=== PATIENT | male | born 1970 | race African-American/Black ===

== ENCOUNTER 2017-09-03 08:30 | Emergency (ER) | payer BC, OTHER ==
--- NOTE | 2017-09-03 08:50 | EDM.PDOC ---
ED HPI GENERAL MEDICAL PROBLEM - General Chief Complaint: Lower Extremity Injury/Pain Stated Complaint: LT KNEE HURTS Time Seen by Provider: 09/03/17 08:48 - History of Present Illness INITIAL COMMENTS - FREE TEXT/NARRATIVE: HISTORY AND PHYSICAL: History of present illness: Patient is a 47-year-old white male presents with concern of left knee pain this is been a chronic problem for which she's had multiple clinic and doctor visits he was put on an anti-inflammatory medication had plain x-ray and routine blood work which he states there was no evidence of gout or other problems and that is in the process of securing reevaluation with his primary care doctor for either physical therapy follow-up with or without an MRI he states today he felt like his knee has been slightly more painful and swollen he states it feels like it wants to give out. Review of systems: As per history of present illness and below otherwise all systems reviewed and negative. Past medical history: As per history of present illness and as reviewed below otherwise noncontributory. Surgical history: As per history of present illness and as reviewed below otherwise noncontributory. Social history: No reported history of drug or alcohol abuse. Family history: As per history of present illness and as reviewed below otherwise noncontributory. Physical exam: HEENT: Atraumatic, normocephalic, pupils reactive, negative for conjunctival pallor or scleral icterus, mucous membranes moist, throat clear, neck supple, nontender, trachea midline. Lungs: Clear to auscultation, breath sounds equal bilaterally, chest nontender. Heart: S1S2, regular, negative for clicks, rubs, or JVD. Abdomen: Soft, nondistended, nontender. Negative for masses or hepatosplenomegaly. Negative for costovertebral tenderness. Pelvis: Stable nontender. Genitourinary: Deferred. Rectal: Deferred. Extremities: Atraumatic, negative for cords or calf pain. Neurovascular unremarkable. Limited exam joint grossly stable Neuro: Awake, alert, oriented. Cranial nerves II through XII unremarkable. Cerebellum unremarkable. Motor and sensory unremarkable throughout. Exam nonfocal. Diagnostics: Deferred Therapeutics: Knee immobilizer crutches Impression: #1 chronic knee pain with acute exacerbation etiology to be determined Definitive disposition and diagnosis as appropriate pending reevaluation and review of above. - Related Data Allergies Allergy/AdvReac Type Severity Reaction Status Date / Time No Known Allergies Allergy Verified 04/24/15 16:16 Home Meds: Home Meds . [No Known Home Meds] 06/26/14 [History] Past Medical History - Past Health History Medical/Surgical History: Denies Medical/Surgical History Other Respiratory History: Tested for sleep apnea- he does not need a cpap. his test was normal Other Gastrointestinal History: family history of brother with colon polyp Other Musculoskeletal History: hx: fractured clavicle - Past Surgical History Other Musculoskeletal Surgeries/Procedures:: Surgery on a toe 15 yrs ago Social & Family History - Tobacco Use Smoking Status *Q: Former Smoker (quit greater than 10 years ago) - Alcohol Use Days Per Week of Alcohol Use: 0 - Recreational Drug Use Recreational Drug Use: No Drug Use in Last 12 Months: No Review of Systems - Review of Systems Review Of Systems: ROS reveals no pertinent complaints other than HPI. ED EXAM, GENERAL - Physical Exam Exam: See Below (See dictation) Departure - Departure Time of Disposition: 08:50 Disposition: Home, Self-Care 01 Condition: Good Clinical Impression: Knee pain - Discharge Information Referrals: PCP,None [Primary Care Provider] - Additional Instructions: The following information is given to patients seen in the emergency department who are being discharged to home. This information is to outline your options for follow-up care. We provide all patients seen in our emergency department with a follow-up referral. The need for follow-up, as well as the timing and circumstances, are variable depending upon the specifics of your emergency department visit. If you don't have a primary care physician on staff, we will provide you with a referral. We always advise you to contact your personal physician following an emergency department visit to inform them of the circumstance of the visit and for follow-up with them and/or the need for any referrals to a consulting specialist. The emergency department will also refer you to a specialist when appropriate. This referral assures that you have the opportunity for followup care with a specialist. All of these measure are taken in an effort to provide you with optimal care, which includes your followup. Under all circumstances we always encourage you to contact your private physician who remains a resource for coordinating your care. When calling for followup care, please make the office aware that this follow-up is from your recent emergency room visit. If for any reason you are refused follow-up, please contact the [facility] emergency department at and asked to speak to the emergency department charge nurse. AGUILAR [facility] [address], [address] [place] [address] Knee immobilizer crutches as directed continue current medications as prescribed follow-up orthopedic surgery and private medical doctor as discussed
[2017-09-03 09:23] VITALS: BP 149/93
== END 2017-09-03 09:18 | disposition home or self-care (01) ==
LOC: MW.ED 08:30
DX: M25.562 Pain in left knee (principal); G89.29 Other chronic pain; Z87.891 Personal history of nicotine dependence
CPT/HCPCS: 99282; 99283

== ENCOUNTER 2017-10-22 22:44 | Emergency (ER) | payer BC ==
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
[2017-10-23 01:43] VITALS: BP 138/81
== END 2017-10-22 23:52 | disposition home or self-care (01) ==
LOC: MW.ED 22:44
DX: Z02.83 Encounter for blood-alcohol and blood-drug test (principal); Z79.899 Other long term (current) drug therapy; Z87.891 Personal history of nicotine dependence; V47.5XXA Car driver injured in collision with fixed or stationary object in traffic accident, initial encounter
CPT/HCPCS: 99282

== ENCOUNTER 2017-11-01 07:43 | Emergency (ER) | payer BC ==
[2017-11-01] MEDS ORDERED: Sodium Chloride 0.9% 10 ML Syringe FLUSH PRN (08:15)
[2017-11-01] MEDS ORDERED: Sodium Chloride 0.9% 2.5 ML Syringe FLUSH PRN (08:15)
[2017-11-01] MEDS ORDERED: Bupivacaine 0.5% 10 ML SDV INJECT ONE (08:32)
[2017-11-01] MEDS ORDERED: Lidocaine 1% 20 ML MDV INJECT ONE (08:32)
[2017-11-01 09:07] LABS: CHLORIDE,CL 103 mmol/L (98-107); SODIUM,NA 139 mmol/L (136-148)
--- NOTE | 2017-11-01 09:55 | CR ---
EXAMINATION: Right great toe HISTORY: Trauma COMPARISON: None TECHNIQUE: 3 views FINDINGS/IMPRESSION: There is an oblique fracture through the distal first phalanx, minimally displac ed with mild overlying soft tissue swelling. Remaining osseous structures and joint spaces appear int act. Mild degenerative changes within the first interphalangeal and first MTP joints.
[2017-11-01] MEDS ORDERED: ceFAZolin 1 GM in Premix Bag 1 BAG IV ONE (10:15)
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
--- NOTE | 2017-11-01 11:33 | CT ---
EXAMINATION: CT chest with contrast HISTORY: Pain COMPARISON: None TECHNIQUE: Axial CT images obtained through the chest following the administration of 75 mL of Isovue -370 the left antecubital fossa. Coronal and sagittal reconstructions obtained. FINDINGS: The lungs are clear without focal consolidation. No pneumothorax. Trace left pleural fluid is noted. Heart is normal in size without a pericardial effusion. No mediastinal, hilar, or axillary lymphadenopathy. The central airways are clear. The thoracic aorta is normal in caliber. The visualized images of the upper abdomen appear normal. Mild soft tissue edema within the left ante rior chest. There is a minimally displaced second anterior rib fracture noted. The visualized scapula appears int act. IMPRESSION: 1. Minimally displaced left second anterior rib fracture. Trace left pleural fluid without a pneumoth orax.
[2017-11-01 11:53] VITALS: BP 164/95
[2017-11-01] MEDS ORDERED: Bacitracin Oint 1 GM U/D Packet TOP ONE (12:04)
[2017-11-01] MEDS ORDERED: Iopamidol 755 MG/ML 500 ML Multipack Bottle IVPUSH ONE (14:09)
== END 2017-11-01 12:18 | disposition home or self-care (01) ==
LOC: MW.ED 07:43
DX: S92.421B Displaced fracture of distal phalanx of right great toe, initial encounter for open fracture (principal); S22.32XD Fracture of one rib, left side, subsequent encounter for fracture with routine healing; Z79.899 Other long term (current) drug therapy; W06.XXXA Fall from bed, initial encounter; W22.8XXA Striking against or struck by other objects, initial encounter
CPT/HCPCS: 36415; 71260; 73660; 80048; 85025; 96365; 99284; J0690; Q9967

== ENCOUNTER 2019-06-17 05:10 | Emergency (ER) | payer BC ==
--- NOTE | 2019-06-17 06:10 | EDM.PDOC ---
ED HPI GENERAL MEDICAL PROBLEM - General Chief Complaint: Headache Stated Complaint: HEAD HURTS Time Seen by Provider: 06/17/19 06:00 Source of Information: Reports: Patient History Limitations: Reports: No Limitations - History of Present Illness INITIAL COMMENTS - FREE TEXT/NARRATIVE: 49-year-old gentleman presents to the emergency room with a chief complaint of falling out and striking his head on the floor about a month ago. At the time refused ambulance traffic and since that time has been having headaches and change in his sleeping pattern. States he fell out after drinking 3 beers and 2 shots of alcohol Duration: Waxing/Waning Location: Reports: Head Severity: Mild Worsens with: Reports: None Associated Symptoms: Reports: No Other Symptoms headache Pain Score (Numeric/FACES): 8 - Related Data Allergies Allergy/AdvReac Type Severity Reaction Status Date / Time No Known Allergies Allergy Verified 06/17/19 05:35 Home Meds: Home Meds Omeprazole Magnesium [Prilosec Otc] 20 mg PO DAILY 05/25/18 [History] Cyclobenzaprine [Flexeril] 10 mg PO BID PRN #12 tab 05/26/18 [Rx] Past Medical History - Past Health History Medical/Surgical History: Denies Medical/Surgical History HEENT History: Reports: Impaired Vision Other HEENT History: wears glasses Cardiovascular History: Reports: None Respiratory History: Reports: None Other Respiratory History: Tested for sleep apnea- he does not need a cpap. his test was normal Gastrointestinal History: Reports: GERD Other Gastrointestinal History: family history of brother with colon polyp Genitourinary History: Reports: None Other Musculoskeletal History: hx: fractured clavicle Neurological History: Reports: None Psychiatric History: Reports: None Endocrine/Metabolic History: Reports: Other (See Below) Other Endocrine/Metabolic History: pre diabetic Insulin Pump Model and Card Player: None Hematologic History: Reports: None Immunologic History: Reports: None Oncologic (Cancer) History: Reports: None Dermatologic History: Reports: None - Infectious Disease History Infectious Disease History: Reports: None - Past Surgical History Head Surgeries/Procedures: Reports: None Other Musculoskeletal Surgeries/Procedures:: Surgery on a toe 15 yrs ago Social & Family History - Family History Family Medical History: Noncontributory - Tobacco Use Smoking Status *Q: Never Smoker - Caffeine Use Caffeine Use: Reports: Coffee - Recreational Drug Use Recreational Drug Use: No ED ROS GENERAL - Review of Systems Review Of Systems: See Below Constitutional: Reports: No Symptoms HEENT: Reports: No Symptoms Respiratory: Reports: No Symptoms Cardiovascular: Reports: No Symptoms Endocrine: Reports: No Symptoms GI/Abdominal: Reports: No Symptoms : Reports: No Symptoms Musculoskeletal: Reports: No Symptoms Skin: Reports: No Symptoms Neurological: Reports: Headache Psychiatric: Reports: No Symptoms Hematologic/Lymphatic: Reports: No Symptoms Immunologic: Reports: No Symptoms ED EXAM, HEAD INJURY - Physical Exam Exam: See Below Exam Limited By: No Limitations General Appearance: Alert, WD/WN, No Apparent Distress Head: Atraumatic, Normocephalic Eyes: Bilateral Eye: PERRL Ears: Normal External Exam, Normal Canal, Hearing Grossly Normal, Normal TMs Nose: Normal Inspection, Normal Mucousa, No Blood Throat/Mouth: Normal Inspection, Normal Lips, Normal Teeth, Normal Gums, Normal Oropharynx, Normal Voice, No Airway Compromise Neck: Non-Tender, Full Range of Motion, Normal Alignment, Normal Inspection Respiratory: No Respiratory Distress, Lungs Clear, Normal Breath Sounds, No Accessory Muscle Use, Chest Non-Tender Cardiovascular: Normal Peripheral Pulses, Regular Rate, Rhythm, No Edema (Male) Exam: Deferred Rectal (Males) Exam: Deferred Back Exam: Normal Inspection Extremities: Normal Inspection Skin: Normal Color, Warm/Dry Course - Vital Signs Text/Narrative:: 49-year-old gentleman presents to the emergency room with a headache after a traumatic fall with loss of consciousness over a month ago. Patient states he has difficult sleep call at this time and also is having severe headaches that are increasing. Patient went to his primary care physician and a CAT scan is ordered but he cannot wait because the headaches still intensity. Patient has no neurological findings at this time. Patient was sent for CT scan of the head and was shown to have a subarachnoid and sub-dural bleed that is small. disCussed the case with Dr. Jurado at [facility] Diagnosis is arachnoid/subdural bleed Last Recorded V/S: Last Vital Signs Temp 97 F 06/17/19 05:35 Pulse 74 06/17/19 07:34 Resp 16 06/17/19 07:34 BP 143/64 H 06/17/19 07:34 Pulse Ox 96 06/17/19 07:34 - Orders/Labs/Meds Orders: Active Orders 24 hr Category Date Time Status INR,PT,PROTHROMBIN TIME [COAG] Stat Lab 06/17/19 06:13 Received Labs: Laboratory Tests 06/17/19 06/17/19 Range/Units 06:13 06:13 WBC 8.58 (4.0-11.0) K/uL RBC 4.80 (4.50-5.90) M/uL Hgb 14.0 (13.0-17.0) g/dL Hct 42.1 (38.0-50.0) % MCV 87.7 (80.0-98.0) fL MCH 29.2 (27.0-32.0) pg MCHC 33.3 (31.0-37.0) g/dL RDW Std Deviation 43.5 (28.0-62.0) fl RDW Coeff of Yovana 14 (11.0-15.0) % Plt Count 208 (150-400) K/uL MPV 10.10 (7.40-12.00) fL Neut % (Auto) 65.0 (48.0-80.0) % Lymph % (Auto) 25.4 (16.0-40.0) % [place] % (Auto) 4.8 (0.0-15.0) % Eos % (Auto) 4.5 (0.0-7.0) % Baso % (Auto) 0.3 (0.0-1.5) % Neut # (Auto) 5.6 (1.4-5.7) K/uL Lymph # (Auto) 2.2 (0.6-2.4) K/uL [place] # (Auto) 0.4 (0.0-0.8) K/uL Eos # (Auto) 0.4 (0.0-0.7) K/uL Baso # (Auto) 0.0 (0.0-0.1) K/uL Nucleated RBC % 0.0 /100WBC Nucleated RBCs # 0 K/uL Sodium 137 (136-148) mmol/L Potassium 3.8 (3.5-5.1) mmol/L Chloride 102 (98-107) mmol/L Carbon Dioxide 27.3 (21.0-32.0) mmol/L BUN 12 (7.0-18.0) mg/dL Creatinine 0.9 (0.8-1.3) mg/dL Est Cr Clr Drug Dosing 106.58 mL/min Estimated GFR (MDRD) > 60.0 ml/min Glucose 108 H (74-106) mg/dL Calcium 8.6 (8.5-10.1) mg/dL Total Bilirubin 0.3 (0.2-1.0) mg/dL AST 7 L (15-37) IU/L ALT 23 (14-63) IU/L Alkaline Phosphatase 44 L (46-116) U/L Total Protein 7.1 (6.4-8.2) g/dL Albumin 3.5 (3.4-5.0) g/dL Globulin 3.6 (2.6-4.0) g/dL Albumin/Globulin Ratio 1.0 (0.9-1.6) Departure - Departure Time of Disposition: 07:38 Disposition: DC/Tfer to Acute Hospital 02 Condition: Fair Clinical Impression: Subarachnoid hemorrhage - Discharge Information Referrals: PCP,None [Primary Care Provider] - Forms: ED Department Discharge Sepsis Event Note - Evaluation Sepsis Screening Result: No Definite Risk - Focused Exam Vital Signs: Vital Signs Temp Pulse Resp BP Pulse Ox 06/17/19 07:34 74 16 143/64 H 96 06/17/19 07:05 78 18 135/91 H 98 06/17/19 05:35 97 F 70 18 146/102 H 98 Date Exam was Performed: 06/17/19 Time Exam was Performed: 07:35 - My Orders Last 24 Hours: My Active Orders 06/17/19 06:13 INR,PT,PROTHROMBIN TIME [COAG] Stat - Assessment/Plan Last 24 Hours: My Active Orders 06/17/19 06:13 INR,PT,PROTHROMBIN TIME [COAG] Stat
[2019-06-17 06:45] LABS: BLOOD UREA NITROGEN,BUN 12 mg/dL (7.0-18.0); CARBON DIOXIDE,CO2 27.3 mmol/L (21.0-32.0); CHLORIDE,CL 102 mmol/L (98-107); GLUCOSE RANDOM 108 mg/dL (74-106); POTASSIUM,K 3.8 mmol/L (3.5-5.1); SODIUM,NA 137 mmol/L (136-148)
--- NOTE | 2019-06-17 07:15 | CT ---
INDICATION: prior sent. pain following fall with loss of consciousness 4 days prior. 270 images Indication: Pain after fall. Loss of consciousness. Technique: CT of the brain without contrast. Coronal/sagittal reconstruction images. Comparison: CT of the brain without contrast, 06/26/2014. Findings: There is suspected subarachnoid hemorrhage involving the anterior hemispheric falx, image 21, series 201, with foci of subarachnoid hemorrhage in both inferior frontal lobes. This is a new finding when compared with 06/26/2014. The interpeduncular fossa and perimesencephalic cisterns are patent. There is no ventriculomegaly. There is no shift of the septum pellucidum. There is no intraventricular hemorrhage. Pterygoid plates are intact. The skullbase and calvaria are intact. Mastoid air cells of both temporal bones are clear. Paranasal sinuses are normal where visualized. Impression: 1. Subarachnoid/subdural hemorrhage in the inferior frontal lobes/interhemispheric falx respectively. 2. Per my discussion with the ER provider, trauma was approximately 1 month ago. 3. Consider a 6 hour follow-up head CT, and neurosurgical consultation, for these findings. 4. Case reviewed with Dr. Burk of the emergency department, 06/17/2019, 0712 hours. Dictated by Gabriel Boggs MD @ 06/17/2019 7:14:29 AM Please note that all CT scans at this facility use dose modulation, iterative reconstruction, and/or weight-based dosing when appropriate to reduce radiation dose to as low as reasonably achievable. Dictated by: Gabriel Boggs MD @ 06/17/2019 07:14:50 (Electronically Signed)
[2019-06-17 09:03] VITALS: BP 159/99; PULSE 68
== END 2019-06-17 09:04 ==
LOC: MW.ED 05:10
DX: S06.6X9A Traumatic subarachnoid hemorrhage with loss of consciousness of unspecified duration, initial encounter (principal); K21.9 Gastro-esophageal reflux disease without esophagitis; Z79.899 Other long term (current) drug therapy; W19.XXXA Unspecified fall, initial encounter
CPT/HCPCS: 36415; 70450; 70450-26; 80053; 85025; 85610; 99283; 99285-25

== ENCOUNTER 2021-08-18 04:42 | Emergency (ER) | payer SELFPAY ==
[2021-08-18] MEDS: Sodium Chloride 0.9% 1,000 ML IV ONE (05:09)
[2021-08-18] MEDS: Ondansetron 4 MG/2 ML SDV IVPUSH ONE (05:10)
[2021-08-18] MEDS: Ketorolac 30 MG/ML SDV IVPUSH ONE (05:10)
[2021-08-18 05:32] LABS: BLOOD UREA NITROGEN,BUN 15 mg/dL (7.0-18.0); CARBON DIOXIDE,CO2 26.5 mmol/L (21.0-32.0); CHLORIDE,CL 102 mmol/L (98-107); GLUCOSE RANDOM 116 mg/dL (74-106); LIPASE 74 U/L (73-393); POTASSIUM,K 3.5 mmol/L (3.5-5.1); SODIUM,NA 139 mmol/L (136-148)
[2021-08-18] MEDS: Iopamidol 755 MG/ML 500 ML Multipack Bottle IVPUSH STA (06:12)
[2021-08-18 07:05] VITALS: BP 138/92; PULSE 71
== END 2021-08-18 07:01 | disposition home or self-care (01) ==
LOC: MW.ED 04:42
DX: R10.11 Right upper quadrant pain (principal); K21.9 Gastro-esophageal reflux disease without esophagitis
CPT/HCPCS: 36415; 74177; 80053; 83690; 83735; 85025; 96374; 96375; 99284; J1885; J2405; J7030; Q9967

== ENCOUNTER 2021-08-20 16:16 | Emergency (ER) | payer SELFPAY ==
[2021-08-20] MEDS ORDERED: Aluminum Hydroxide/Magnesium Hydroxide/Simethicone XS Susp 30 ML Cup PO ONE (17:20)
[2021-08-20 17:42] LABS: BLOOD UREA NITROGEN,BUN 14 mg/dL (7.0-18.0); CARBON DIOXIDE,CO2 26.7 mmol/L (21.0-32.0); CHLORIDE,CL 100 mmol/L (98-107); GLUCOSE RANDOM 108 mg/dL (74-106); LIPASE 55 U/L (73-393); POTASSIUM,K 3.2 mmol/L (3.5-5.1); SODIUM,NA 138 mmol/L (136-148)
[2021-08-20 18:42] VITALS: BP 157/99; PULSE 73
== END 2021-08-20 18:36 | disposition home or self-care (01) ==
LOC: MW.ED 16:16
DX: K82.8 Other specified diseases of gallbladder (principal)
CPT/HCPCS: 36415; 76705; 76705-26; 80053; 83690; 85025; 99284-25

== ENCOUNTER 2021-08-22 01:27 | Observation (INO) | payer SELFPAY ==
[2021-08-22] MEDS ORDERED: Lactated Ringers 1,000 ML IV STA (01:43)
[2021-08-22] MEDS ORDERED: fentaNYL 50 MCG/ML SDV IVPUSH ONE (01:44)
[2021-08-22] MEDS ORDERED: Ondansetron 4 MG/2 ML SDV IVPUSH ONE (01:50)
[2021-08-22 02:26] LABS: BLOOD UREA NITROGEN,BUN 9 mg/dL (7.0-18.0); CHLORIDE,CL 98 mmol/L (98-107); GLUCOSE RANDOM 131 mg/dL (74-106); SODIUM,NA 136 mmol/L (136-148)
[2021-08-22] MEDS ORDERED: cefTRIAXone 2 GM in Premix Bag 1 BAG IV ONE (02:30)
[2021-08-22] MEDS ORDERED: metroNIDAZOLE/Normal Saline 500 MG in Premix Bag 1 BAG IV ONE (02:30)
[2021-08-22] MEDS ORDERED: Lactated Ringers 1,000 ML IV SCH ×2 (02:30→16:15)
[2021-08-22] MEDS: HYDROmorphone 1 MG/ML Syringe IVPUSH PRN ×2 (03:03→09:03)
[2021-08-22] MEDS ORDERED: Pantoprazole 40 MG in Sodium Chloride 0.9% 10 ML IVPUSH SCH (09:00)
[2021-08-22] MEDS ORDERED: Piperacillin/Tazobactam 3.375 GM in Sodium Chloride 0.9% 50 ML IV ONE (12:00)
[2021-08-22 12:09] LABS: BLOOD UREA NITROGEN,BUN 6 mg/dL (7.0-18.0); CARBON DIOXIDE,CO2 29.3 mmol/L (21.0-32.0); CHLORIDE,CL 97 mmol/L (98-107); GLUCOSE RANDOM 113 mg/dL (74-106); POTASSIUM,K 4.4 mmol/L (3.5-5.1); SODIUM,NA 138 mmol/L (136-148)
[2021-08-22] MEDS ORDERED: Ketamine HCL/NACL, ISO-OSM 50 MG/5 ML Syringe ONE (12:26)
[2021-08-22] MEDS ORDERED: Propofol 200 MG/20 ML SDV ONE (12:26)
[2021-08-22] MEDS ORDERED: fentaNYL 250 MCG/5 ML SDV ONE ×2 (12:27→13:27)
[2021-08-22] MEDS ORDERED: Octyl 2-Cyanoacrylate 1 Tube ONE (12:47)
[2021-08-22] MEDS ORDERED: Bupivacaine 0.25%/EPINEPHrine 1:200,000 10 ML SDV ONE (12:48)
[2021-08-22] MEDS ORDERED: Ondansetron 4 MG/2 ML SDV IVPUSH PRN ×2 (12:52→16:17)
[2021-08-22] MEDS ORDERED: Naloxone 0.4 MG/ML SDV IVPUSH PRN (12:52)
[2021-08-22] MEDS ORDERED: HYDROmorphone 1 MG/ML Syringe IVPUSH PRN (12:52)
[2021-08-22] MEDS ORDERED: Morphine 4 MG/ML VIAL IVPUSH PRN ×2 (12:52→16:31)
[2021-08-22] MEDS ORDERED: Albuterol 0.083% 2.5 MG/3 ML Neb Soln NEB PRN (12:52)
[2021-08-22] MEDS ORDERED: fentaNYL 100 MCG/2 ML SDV IVPUSH PRN (12:52)
[2021-08-22] MEDS ORDERED: Metoclopramide 10 MG/2 ML SDV IVPUSH PRN (12:52)
[2021-08-22] MEDS ORDERED: fentaNYL 100 MCG/2 ML SDV ONE ×2 (13:58→14:12)
[2021-08-22] MEDS ORDERED: ePHEDrine 50 MG/ML SDV ONE (14:57)
[2021-08-22] MEDS ORDERED: Ketorolac 30 MG/ML SDV ONE (14:57)
[2021-08-22] MEDS ORDERED: Ondansetron 4 MG/2 ML SDV ONE (14:57)
[2021-08-22] MEDS ORDERED: Rocuronium Bromide 50 MG/5 ML Syringe ONE (14:57)
[2021-08-22] MEDS ORDERED: Sugammadex Sodium 200 MG/2 ML VIAL ONE (14:57)
[2021-08-22] MEDS ORDERED: Glycopyrrolate 0.2 MG/ML SDV ONE (14:57)
[2021-08-22] MEDS ORDERED: Dexamethasone 4 MG/ML 5 ML MDV ONE (14:57)
[2021-08-22] MEDS ORDERED: HYDROmorphone 2 MG/ML Syringe ONE (15:21)
[2021-08-22] MEDS ORDERED: Piperacillin/Tazobactam 3.375 GM in Sodium Chloride 0.9% 50 ML IV SCH (16:15)
[2021-08-22] MEDS ORDERED: Acetaminophen/oxyCODONE 325-5 MG Tab PO PRN ×2 (16:33)
[2021-08-22] MEDS: Piperacillin/Tazobactam 3.375 GM in Sodium Chloride 0.9% 50 ML IV SCH (20:55)
[2021-08-23] MEDS: Piperacillin/Tazobactam 3.375 GM in Sodium Chloride 0.9% 50 ML IV SCH (02:17)
[2021-08-23 04:42] VITALS: BP 136/76; PULSE 61
== END 2021-08-23 03:45 | disposition home or self-care (01) ==
LOC: MW.ED 01:27 → MW.MS 02:27
PROVIDERS: ADMIT Surgery; ATTEND Surgery
DX: K80.12 Calculus of gallbladder with acute and chronic cholecystitis without obstruction (principal); E66.9 Obesity, unspecified; K21.9 Gastro-esophageal reflux disease without esophagitis; Z68.35 Body mass index [BMI] 35.0-35.9, adult
CPT/HCPCS: 36415; 47562; 76705; 80053; 83605; 83690; 85025; 85610; 87040; 96365; 96375; 99285; A9270; C9113; J0131; J0696; J1100; J1170; J1885; J2405; J2543; J2704; J3010; J3490; J7030; J7120; 00790

== ENCOUNTER 2021-11-04 11:16 | Emergency (ER) | payer MEDICAID ==
[2021-11-04 11:42] VITALS: BP 148/92; PULSE 79
[2021-11-04] MEDS ORDERED: Ketorolac 60 MG/2 ML SDV IM ONE (11:52)
== END 2021-11-04 13:26 | disposition home or self-care (01) ==
LOC: MW.ED 11:16
DX: S30.0XXA Contusion of lower back and pelvis, initial encounter (principal); K21.9 Gastro-esophageal reflux disease without esophagitis; W17.89XA Other fall from one level to another, initial encounter
CPT/HCPCS: 72100; 72220; 96372; 99283; J1885

== ENCOUNTER 2022-11-05 11:01 | Emergency (ER) | payer BC, MEDICAID ==
[2022-11-05] MEDS ORDERED: Ondansetron 4 MG/2 ML SDV IVPUSH ONE (11:18)
[2022-11-05] MEDS ORDERED: Morphine 4 MG/ML Syringe IVPUSH ONE (11:18)
[2022-11-05 11:26] LABS: BASOPHILS PERCENT AUTO 0.2 % (0.0-1.5); EOSINOPHILS ABSOLUTE AUTO 0.6 K/uL (0.0-0.7); EOSINOPHILS PERCENT AUTO 6.3 % (0.0-7.0); HEMOGLOBIN 14.5 g/dL (13.0-17.0); LYMPHOCYTES ABSOLUTE AUTO 3.2 K/uL (0.6-2.4); LYMPHOCYTES PERCENT AUTO 35.6 % (16.0-40.0); MEAN CORPUSCULAR HEMOGLOBIN 29.8 pg (27.0-32.0); MEAN CORPUSCULAR VOLUME 90.5 fL (80.0-98.0); MONOCYTES ABSOLUTE AUTO 0.4 K/uL (0.0-0.8); MONOCYTES PERCENT AUTO 4.2 % (0.0-15.0); NEUTROPHILS ABSOLUTE AUTO 4.9 K/uL (1.4-5.7); NEUTROPHILS PERCENT AUTO 53.7 % (48.0-80.0); NRBC ABSOLUTE 0 K/uL; PLATELET COUNT,PLT 234 K/uL (150-400); RED BLOOD CELL COUNT 4.86 M/uL (4.50-5.90); WHITE BLOOD CELL COUNT,WBC 9.11 K/uL (4.0-11.0)
[2022-11-05] MEDS ORDERED: Lactated Ringers 1,000 ML IV SCH (11:30)
[2022-11-05 12:00] LABS: A/G RATIO 1.1 (0.9-1.6); ALBUMIN 3.9 g/dL (3.4-5.0); BILIRUBIN TOTAL 0.3 mg/dL (0.2-1.0); CALCIUM 8.8 mg/dL (8.5-10.1); CARBON DIOXIDE,CO2 30.6 mmol/L (21.0-32.0); CREATININE 0.8 mg/dL (0.8-1.3); EST CRCL DRUG DOSING (CG) 115.86 mL/min; POTASSIUM,K 3.7 mmol/L (3.5-5.1); PROTEIN TOTAL,TP 7.6 g/dL (6.4-8.2)
[2022-11-05] MEDS ORDERED: Iopamidol 755 MG/ML 500 ML Multipack Bottle IVPUSH ONE (12:21)
[2022-11-05 12:43] LABS: APPEARANCE,URINE CLEAR; BILIRUBIN,URINE NEGATIVE (NEGATIVE); COLOR,URINE YELLOW; GLUCOSE,URINE NEGATIVE (NEGATIVE); KETONES,URINE NEGATIVE (NEGATIVE); LEUKOCYTE ESTERASE,URINE NEGATIVE (NEGATIVE); NITRITE,URINE NEGATIVE (NEGATIVE); OCCULT BLOOD,URINE TRACE-INTACT (NEGATIVE); PH,URINE 5.5 (5.0-8.0); PROTEIN,URINE NEGATIVE (NEGATIVE); UROBILINOGEN,URINE 0.2 EU/dL (<2.0)
[2022-11-05 12:56] LABS: BACTERIA,URINE NOT SEEN (NEGATIVE); EPITHELIAL CELLS,URINE RARE (NONE-FEW); HYALINE CASTS,URINE 0-1 (0-2/LPF); MUCUS,URINE LIGHT (NONE-MOD); WBC,URINE 0-1 (0-5/HPF)
[2022-11-05 14:01] VITALS: BP 138/78; PULSE 68
== END 2022-11-05 14:00 | disposition home or self-care (01) ==
LOC: MW.ED 11:01
DX: R10.11 Right upper quadrant pain (principal)
CPT/HCPCS: 36415; 74177; 80053; 81001; 83690; 85025; 96361; 96374; 96375; 99284; J2270; J2405; J7120; Q9967; 99283

== ENCOUNTER 2023-04-07 17:22 | Emergency (ER) | payer OTHER, MEDICAID ==
[2023-04-07] MEDS ORDERED: Ibuprofen 600 MG Tab PO ONE (19:27)
[2023-04-07 21:04] VITALS: BP 153/100; PULSE 64
== END 2023-04-07 19:39 | disposition home or self-care (01) ==
LOC: MW.ED 17:22
DX: M54.2 Cervicalgia (principal); M54.9 Dorsalgia, unspecified; V89.2XXA Person injured in unspecified motor-vehicle accident, traffic, initial encounter; Y92.410 Unspecified street and highway as the place of occurrence of the external cause
CPT/HCPCS: 71045; 72125; 72128; 99284; A9270; 99283

== ENCOUNTER 2023-05-08 03:05 | Emergency (ER) | payer MEDICAID, OTHER ==
[2023-05-08] MEDS ORDERED: Sodium Chloride 0.9% 10 ML Syringe FLUSH PRN (03:58)
[2023-05-08] MEDS ORDERED: Sodium Chloride 0.9% 2.5 ML Syringe FLUSH PRN (03:58)
[2023-05-08 04:23] LABS: BASOPHILS ABSOLUTE AUTO 0.08 K/uL (0.00-0.20); BASOPHILS PERCENT AUTO 0.8 % (0.0-1.0); EOSINOPHILS ABSOLUTE AUTO 0.51 K/uL (0.00-0.45); EOSINOPHILS PERCENT AUTO 4.9 % (0.0-6.0); HEMATOCRIT 41.9 % (42.0-52.0); HEMOGLOBIN 13.7 g/dL (14.0-18.0); IMMATURE GRAN ABSOLUTE AUTO 0.03 K/uL (0.00-0.05); IMMATURE GRAN PERCENT AUTO 0.3 % (0.0-0.4); LYMPHOCYTES ABSOLUTE AUTO 3.94 K/uL (1.00-4.80); LYMPHOCYTES PERCENT AUTO 37.5 % (24.0-44.0); MEAN CORPUSCULAR HEMOGLOBIN 28.3 pg (28.0-32.0); MEAN CORPUSCULAR HGB CONC 32.7 g/dL (32.0-36.0); MEAN CORPUSCULAR VOLUME 86.6 fL (83.0-99.0); MEAN PLATELET VOLUME 11.2 fL (9.4-12.4); MONOCYTES ABSOLUTE AUTO 0.62 K/uL (0.00-0.80); MONOCYTES PERCENT AUTO 5.9 % (0.0-8.0); NEUTROPHILS ABSOLUTE AUTO 5.33 K/uL (1.80-7.70); NEUTROPHILS PERCENT AUTO 50.6 % (41.0-71.0); PLATELET COUNT,PLT 196 K/uL (150-400); RED BLOOD CELL COUNT 4.84 M/uL (4.52-5.90); WHITE BLOOD CELL COUNT,WBC 10.51 K/uL (3.9-11.3)
[2023-05-08 04:25] LABS: APPEARANCE,URINE CLEAR; BILIRUBIN,URINE NEGATIVE (NEGATIVE); COLOR,URINE YELLOW; GLUCOSE,URINE NEGATIVE (NEGATIVE); KETONES,URINE NEGATIVE (NEGATIVE); LEUKOCYTE ESTERASE,URINE NEGATIVE (NEGATIVE); NITRITE,URINE NEGATIVE (NEGATIVE); OCCULT BLOOD,URINE TRACE-INTACT (NEGATIVE); PROTEIN,URINE NEGATIVE (NEGATIVE); UROBILINOGEN,URINE 0.2 EU/dL (<2.0)
[2023-05-08 04:37] LABS: BACTERIA,URINE FEW (NEGATIVE); EPITHELIAL CELLS,URINE NOT SEEN (NONE-FEW); WBC,URINE 0-2 (0-5/HPF)
[2023-05-08 04:38] LABS: MUCUS,URINE LIGHT (NONE-MOD)
[2023-05-08 04:47] LABS: A/G RATIO 1.1 (0.9-1.6); BILIRUBIN TOTAL 0.3 mg/dL (0.2-1.0); CREATININE 0.8 mg/dL (0.8-1.3); EST CRCL DRUG DOSING (CG) 121.3 mL/min; POTASSIUM,K 3.9 mmol/L (3.5-5.1); PROTEIN TOTAL,TP 7.6 g/dL (6.4-8.2)
[2023-05-08] MEDS ORDERED: Iopamidol 755 MG/ML 500 ML Multipack Bottle IVPUSH STA (04:52)
[2023-05-08] MEDS ORDERED: Ketorolac 30 MG/ML SDV IVPUSH ONE (04:55)
[2023-05-08] MEDS ORDERED: Lidocaine 4% 1 each Patch TOP PRN (06:29)
[2023-05-08 06:33] VITALS: BP 133/94; PULSE 61
== END 2023-05-08 06:40 | disposition home or self-care (01) ==
LOC: MW.ED 03:05
DX: R31.29 Other microscopic hematuria (principal); Z90.49 Acquired absence of other specified parts of digestive tract
CPT/HCPCS: 36415; 74177; 80053; 81001; 83690; 85025; 96374; 99284; A9270; J1885; J3490; Q9967

== ENCOUNTER 2023-09-18 19:44 | Emergency (ER) | payer MEDICAID, OTHER ==
[2023-09-18] MEDS: Orphenadrine 60 MG/2 ML Inj IM ONE (20:17)
[2023-09-18] MEDS: Ketorolac 30 MG/ML SDV IVPUSH ONE ×2 (20:17→20:18)
[2023-09-18] MEDS: Ketorolac 30 MG/ML SDV IM STA (20:18)
[2023-09-18 20:25] LABS: BASOPHILS ABSOLUTE AUTO 0.07 K/uL (0.00-0.20); BASOPHILS PERCENT AUTO 0.7 % (0.0-1.0); EOSINOPHILS ABSOLUTE AUTO 0.66 K/uL (0.00-0.45); HEMATOCRIT 41.4 % (42.0-52.0); HEMOGLOBIN 13.6 g/dL (14.0-18.0); IMMATURE GRAN ABSOLUTE AUTO 0.02 K/uL (0.00-0.05); IMMATURE GRAN PERCENT AUTO 0.2 % (0.0-0.4); LYMPHOCYTES ABSOLUTE AUTO 3.59 K/uL (1.00-4.80); LYMPHOCYTES PERCENT AUTO 38.3 % (24.0-44.0); MEAN CORPUSCULAR HEMOGLOBIN 28.5 pg (28.0-32.0); MEAN CORPUSCULAR HGB CONC 32.9 g/dL (32.0-36.0); MEAN CORPUSCULAR VOLUME 86.8 fL (83.0-99.0); MEAN PLATELET VOLUME 10.4 fL (9.4-12.4); MONOCYTES ABSOLUTE AUTO 0.55 K/uL (0.00-0.80); MONOCYTES PERCENT AUTO 5.9 % (0.0-8.0); NEUTROPHILS ABSOLUTE AUTO 4.49 K/uL (1.80-7.70); NEUTROPHILS PERCENT AUTO 47.9 % (41.0-71.0); PLATELET COUNT,PLT 204 K/uL (150-400); RED BLOOD CELL COUNT 4.77 M/uL (4.52-5.90); WHITE BLOOD CELL COUNT,WBC 9.38 K/uL (3.9-11.3)
[2023-09-18 20:44] LABS: APPEARANCE,URINE CLEAR; BILIRUBIN,URINE NEGATIVE (NEGATIVE); COLOR,URINE YELLOW; GLUCOSE,URINE NEGATIVE (NEGATIVE); KETONES,URINE NEGATIVE (NEGATIVE); LEUKOCYTE ESTERASE,URINE NEGATIVE (NEGATIVE); NITRITE,URINE NEGATIVE (NEGATIVE); OCCULT BLOOD,URINE TRACE-INTACT (NEGATIVE); PH,URINE 5.5 (5.0-8.0); PROTEIN,URINE NEGATIVE (NEGATIVE); UROBILINOGEN,URINE 0.2 EU/dL (<2.0)
[2023-09-18 20:49] LABS: A/G RATIO 1.1 (0.9-1.6); ALBUMIN 3.7 g/dL (3.4-5.0); BILIRUBIN TOTAL 0.2 mg/dL (0.2-1.0); CARBON DIOXIDE,CO2 27.1 mmol/L (21.0-32.0); CREATININE 0.9 mg/dL (0.8-1.3); EST CRCL DRUG DOSING (CG) 101.79 mL/min; POTASSIUM,K 3.7 mmol/L (3.5-5.1); PROTEIN TOTAL,TP 7.1 g/dL (6.4-8.2)
[2023-09-18 20:57] LABS: BACTERIA,URINE FEW (NEGATIVE); EPITHELIAL CELLS,URINE RARE (NONE-FEW); RBC,URINE 0-1 (0-2/HPF); WBC,URINE 0-2 (0-5/HPF)
[2023-09-18 21:23] VITALS: BP 132/85; PULSE 66
== END 2023-09-18 21:22 | disposition home or self-care (01) ==
LOC: MW.ED 19:44
DX: R10.11 Right upper quadrant pain (principal); Z90.49 Acquired absence of other specified parts of digestive tract; Z75.8 Other problems related to medical facilities and other health care
CPT/HCPCS: 36415; 80053; 81001; 83690; 85025; 96372; 99284; J1885; J2360

== ENCOUNTER 2023-10-20 14:19 | Emergency (ER) | payer MEDICAID ==
[2023-10-20] MEDS: Acetaminophen/HYDROcodone 325-5 MG Tab PO ONE (15:14)
[2023-10-20 16:37] VITALS: BP 172/95; PULSE 64
== END 2023-10-20 16:30 | disposition home or self-care (01) ==
LOC: MW.ED 14:19
DX: R10.9 Unspecified abdominal pain (principal); Z90.49 Acquired absence of other specified parts of digestive tract; Z75.8 Other problems related to medical facilities and other health care
CPT/HCPCS: 72128; 99284; A9270; 99283

== ENCOUNTER 2023-12-04 00:07 | Emergency (ER) | payer MEDICAID ==
[2023-12-04] MEDS: Sodium Chloride 0.9% 1,000 ML IV ONE (00:35)
[2023-12-04 00:36] LABS: BASOPHILS ABSOLUTE AUTO 0.08 K/uL (0.00-0.20); BASOPHILS PERCENT AUTO 0.8 % (0.0-1.0); EOSINOPHILS ABSOLUTE AUTO 0.72 K/uL (0.00-0.45); EOSINOPHILS PERCENT AUTO 7.6 % (0.0-6.0); HEMATOCRIT 43.4 % (42.0-52.0); HEMOGLOBIN 14.3 g/dL (14.0-18.0); IMMATURE GRAN ABSOLUTE AUTO 0.03 K/uL (0.00-0.05); IMMATURE GRAN PERCENT AUTO 0.3 % (0.0-0.4); LYMPHOCYTES ABSOLUTE AUTO 3.51 K/uL (1.00-4.80); LYMPHOCYTES PERCENT AUTO 36.8 % (24.0-44.0); MEAN CORPUSCULAR HEMOGLOBIN 28.6 pg (28.0-32.0); MEAN CORPUSCULAR HGB CONC 32.9 g/dL (32.0-36.0); MEAN CORPUSCULAR VOLUME 86.8 fL (83.0-99.0); MEAN PLATELET VOLUME 10.7 fL (9.4-12.4); MONOCYTES ABSOLUTE AUTO 0.68 K/uL (0.00-0.80); MONOCYTES PERCENT AUTO 7.1 % (0.0-8.0); NEUTROPHILS ABSOLUTE AUTO 4.51 K/uL (1.80-7.70); NEUTROPHILS PERCENT AUTO 47.4 % (41.0-71.0); PLATELET COUNT,PLT 225 K/uL (150-400); WHITE BLOOD CELL COUNT,WBC 9.53 K/uL (3.9-11.3)
[2023-12-04] MEDS: Ketorolac 30 MG/ML SDV IVPUSH ONE (00:36)
[2023-12-04 00:39] LABS: APPEARANCE,URINE SLT CLOUDY; COLOR,URINE YELLOW; GLUCOSE,URINE NEGATIVE (NEGATIVE); KETONES,URINE NEGATIVE (NEGATIVE); LEUKOCYTE ESTERASE,URINE NEGATIVE (NEGATIVE); NITRITE,URINE NEGATIVE (NEGATIVE); OCCULT BLOOD,URINE LARGE (NEGATIVE); PH,URINE 5.5 (5.0-8.0); PROTEIN,URINE TRACE mg/dL (NEGATIVE); UROBILINOGEN,URINE 0.2 EU/dL (<2.0)
[2023-12-04 00:40] LABS: BILIRUBIN,URINE SMALL (NEGATIVE)
[2023-12-04 00:49] LABS: A/G RATIO 1.2 (0.9-1.6); ALBUMIN 4.1 g/dL (3.4-5.0); BILIRUBIN TOTAL 0.4 mg/dL (0.2-1.0); CALCIUM 8.9 mg/dL (8.5-10.1); CARBON DIOXIDE,CO2 26.8 mmol/L (21.0-32.0); EST CRCL DRUG DOSING (CG) 91.61 mL/min; POTASSIUM,K 3.8 mmol/L (3.5-5.1); PROTEIN TOTAL,TP 7.6 g/dL (6.4-8.2)
[2023-12-04 00:53] LABS: BACTERIA,URINE FEW (NEGATIVE); EPITHELIAL CELLS,URINE FEW (NONE-FEW); HYALINE CASTS,URINE 0-1 (0-2/LPF); MUCUS,URINE MODERATE (NONE-MOD); WBC,URINE 0-2 (0-5/HPF)
[2023-12-04 01:28] VITALS: BP 131/90; PULSE 54
== END 2023-12-04 01:28 | disposition home or self-care (01) ==
LOC: MW.ED 00:07
DX: N20.0 Calculus of kidney (principal); Z79.899 Other long term (current) drug therapy; Z75.8 Other problems related to medical facilities and other health care
CPT/HCPCS: 36415; 74176; 80053; 81001; 85025; 96361; 96374; 99284; J1885; J7030

== ENCOUNTER 2024-08-23 21:27 | Emergency (ER) | payer MEDICAID ==
[2024-08-23 22:14] VITALS: BP 117/78; PULSE 58
[2024-08-23] MEDS ORDERED: Ibuprofen 400 MG Tab PO ONE (23:28)
[2024-08-23] MEDS ORDERED: Ondansetron 4 MG Tab.DIS PO ONE (23:28)
== END 2024-08-23 22:13 | disposition home or self-care (01) ==
LOC: MW.ED 21:27
DX: S61.211A Laceration without foreign body of left index finger without damage to nail, initial encounter (principal); Z90.49 Acquired absence of other specified parts of digestive tract; W26.8XXA Contact with other sharp object(s), not elsewhere classified, initial encounter
CPT/HCPCS: 99282